=== PATIENT | female | born 1955 | race Caucasian/White ===

== ENCOUNTER 2023-09-09 12:10 | Observation (INO) ==
[2023-09-09] MEDS ORDERED: PROVENTIL NEB TX 0.083% 2.5MG/ 3ML NEB PRN (14:00)
[2023-09-09 14:27] LABS: BASOPHILS # (AUTO) 0.1 X10^3/uL (0.0-0.1); BASOPHILS % (AUTO) 0.6 % (0.2-1.0); EOSINOPHILS # (AUTO) 0.1 x10^3/uL (0.0-0.2); EOSINOPHILS % (AUTO) 0.8 % (0.9-2.9); HEMATOCRIT 38.1 % (36.0-47.0); HEMOGLOBIN 12.7 g/dL (12.0-16.0); LYMPHOCYTES # (AUTO) 2.7 X10^3/uL (1.3-2.9); LYMPHOCYTES % (AUTO) 30.9 % (21.0-51.0); MEAN CORPUSCULAR HEMOGLOBIN 28.7 pg (27.0-34.0); MEAN CORPUSCULAR HGB CONC 33.4 g/dL (33.0-35.0); MEAN CORPUSCULAR VOLUME 85.8 fL (80.0-100.0); MEAN PLATELET VOLUME 7.9 fL (7.4-11.0); MONOCYTES # (AUTO) 0.7 x10^3/uL (0.3-0.8); NEUTROPHILS # (AUTO) 5.3 x10^3/uL (2.2-4.8); NEUTROPHILS % (AUTO) 59.7 % (42.0-75.0); PLATELET COUNT 221 X10^3/uL (150.0-450.0); RED BLOOD COUNT 4.44 X10^6/uL (3.5-5.4); RED CELL DISTRIBUTION WIDTH 18.2 % (11.6-16.5); WHITE BLOOD COUNT 8.8 X10^3/uL (3.6-10.0)
[2023-09-09] MEDS: ZOFRAN INJ 4 MG VIAL IVP PRN (14:30)
[2023-09-09 14:38] LABS: ALANINE AMINOTRANSFERASE 24 Units/L (12-78); ALBUMIN 2.7 g/dL (3.4-5.0); ALKALINE PHOSPHATASE 61 Units/L (46-116); AMYLASE 50 Units/L (25-115); ASPARTATE AMINO TRANSFERASE 23 Units/L (15-37); BLOOD UREA NITROGEN 7 mg/dL (7-18); CALCIUM 8.4 mg/dL (8.5-10.1); CARBON DIOXIDE 29.4 mmol/L (21-32); CHLORIDE 98 mmol/L (98-107); COR CA(FOR HYPOALB) 9.4 mg/dL (8.5-10.1); GLUCOSE 91 mg/dL (65-99); LIPASE 21 Units/L (16-77); POTASSIUM 3.4 mmol/L (3.5-5.1); SODIUM 134 mmol/L (136-145); TOTAL PROTEIN 6.7 g/dL (6.4-8.2); eGFR NON BLACK RACES > 60 (>60)
[2023-09-09 14:51] VITALS: BMI 27.1
[2023-09-09] MEDS: NS 1,000 ML IV 1,000 ML IV SCH (15:07)
[2023-09-09] MEDS: PEPCID 20 MG VIAL 20 MG in NS 50 ML IV 50 ML IV SCH (15:07)
[2023-09-09] MEDS: PROTONIX INJ 40 MG VIAL IVP SCH (15:08)
[2023-09-09] MEDS: CONSULT PHARMACY - POTASSIUM & MAGNESIUM XX SCH (15:19)
[2023-09-09] MEDS: NS + KCL 20 MEQ/L 1,000 ML IV SCH (15:57)
[2023-09-09] MEDS: OMNIPAQUE 350 mg/mL 100 mL BTL 100 ML ONE (16:58)
--- NOTE | 2023-09-09 18:01 | CT ---
EXAM: CT ABDOMEN AND PELVIS WITH CONTRAST HISTORY: abdomen pain, nauseam vomiting; COMPARISON: None. TECHNIQUE: Axial CT images were obtained through the abdomen and pelvis after the intravenous administration of contrast. Coronal reformatted images were included. Informed written consent was obtained prior to contrast administration. All CT scans at this facility use dose modulation, iterative reconstruction, and/or weight based dosi ng when appropriate to reduce radiation dose to as low as reasonably achievable. FINDINGS: LOWER THORAX: Within normal limits. ABDOMEN: LIVER: Small hemangioma posteriorly in the right hepatic lobe GALLBLADDER: Within normal limits. SPLEEN: Within normal limits. PANCREAS: Within normal limits. KIDNEYS: Within normal limits. ADRENAL GLANDS: Within normal limits. GI TRACT: No bowel obstruction. Mild wall thickening of the rectum and sigmoid colon. LYMPH NODES: No abnormally enlarged nodes. VESSELS: Mild diffuse athero sclerotic disease PERITONEUM / RETROPERITONEUM: No free gas. PELVIS: BLADDER: Within normal limits. GENITALS: Within normal limits. BONES: Lumbar fusion hardware IMPRESSION: No evidence of bowel obstruction. Mild wall thickening of the distal sigmoid colon and rectum may pacheco ggest an element of colitis/proctitis. THIS IS AN ELECTRONICALLY VERIFIED FINAL REPORT 09/09/2023 5:58 PM - Electronically signed by Asihsh Street MD
[2023-09-09 20:07] LABS: BILIRUBIN,URINE NEGATIVE (NEGATIVE); BLOOD/HEMOGLOBIN,URINE 1+ (NEGATIVE); GLUCOSE, URINE NEGATIVE (NEGATIVE); KETONES,URINE NEGATIVE (NEGATIVE); LEUKOCYTE ESTERASE ,URINE NEGATIVE (NEGATIVE); NITRITES,URINE NEGATIVE (NEGATIVE); PROTEIN,URINE NEGATIVE (NEGATIVE); UROBILINOGEN,URINE NORMAL (NORMAL)
[2023-09-09 20:12] LABS: APPEARANCE,URINE CLEAR (CLEAR); COLOR,URINE YELLOW (YELLOW)
[2023-09-09 20:17] LABS: BACTERIA,URINE TRACE /HPF (NEGATIVE); RBC,URINE 0-2 /HPF (0-3); SQUAMOUS EPITHELIAL CELL,UR FEW /HPF (NEGATIVE)
[2023-09-09] MEDS ORDERED: HYCODAN SYRUP PO PRN (21:54)
[2023-09-09] MEDS ORDERED: PULMICORT NEB TX 0.5 MG NEB PRN (22:22)
[2023-09-09] MEDS: CIPRO IV 400 MG PREMIX* 400 MG/200 ML IV.SOLN. IV SCH (22:23)
[2023-09-09] MEDS: PULMICORT NEB TX 0.5 MG NEB SCH (22:25)
[2023-09-09] MEDS: NORCO 7.5/325 MG TAB PO PRN (22:32)
[2023-09-10 06:17] LABS: BASOPHILS % (AUTO) 0.6 % (0.2-1.0); EOSINOPHILS # (AUTO) 0.1 x10^3/uL (0.0-0.2); EOSINOPHILS % (AUTO) 1.3 % (0.9-2.9); HEMATOCRIT 33.8 % (36.0-47.0); HEMOGLOBIN 11.3 g/dL (12.0-16.0); LYMPHOCYTES % (AUTO) 44.5 % (21.0-51.0); MEAN CORPUSCULAR HEMOGLOBIN 28.8 pg (27.0-34.0); MEAN CORPUSCULAR HGB CONC 33.4 g/dL (33.0-35.0); MEAN CORPUSCULAR VOLUME 86.1 fL (80.0-100.0); MEAN PLATELET VOLUME 8.1 fL (7.4-11.0); MONOCYTES # (AUTO) 0.8 x10^3/uL (0.3-0.8); MONOCYTES % (AUTO) 11.7 % (0.0-13.0); NEUTROPHILS # (AUTO) 2.8 x10^3/uL (2.2-4.8); NEUTROPHILS % (AUTO) 41.9 % (42.0-75.0); PLATELET COUNT 211 X10^3/uL (150.0-450.0); RED BLOOD COUNT 3.93 X10^6/uL (3.5-5.4); RED CELL DISTRIBUTION WIDTH 18.3 % (11.6-16.5); WHITE BLOOD COUNT 6.7 X10^3/uL (3.6-10.0)
[2023-09-10 06:28] LABS: ALANINE AMINOTRANSFERASE 23 Units/L (12-78); ALBUMIN 2.4 g/dL (3.4-5.0); ALKALINE PHOSPHATASE 52 Units/L (46-116); ASPARTATE AMINO TRANSFERASE 14 Units/L (15-37); BLOOD UREA NITROGEN 6 mg/dL (7-18); CARBON DIOXIDE 34.4 mmol/L (21-32); CHLORIDE 102 mmol/L (98-107); COR CA(FOR HYPOALB) 9.3 mg/dL (8.5-10.1); CREATININE 0.88 mg/dL (0.55-1.02); GLUCOSE 86 mg/dL (65-99); MAGNESIUM 1.3 mg/dL (2.0-2.9); SODIUM 138 mmol/L (136-145); TOTAL PROTEIN 5.8 g/dL (6.4-8.2); eGFR NON BLACK RACES > 60 (>60)
[2023-09-10] MEDS ORDERED: CONSULT PHARMACY - POTASSIUM & MAGNESIUM XX SCH (07:00)
[2023-09-10] MEDS ORDERED: TUSSIONEX PENNKINETIC SUSP PO PRN (07:45)
[2023-09-10] MEDS ORDERED: PATIENT'S HOME MEDICATION (Dexlansoprazole 60 mg capsule,biphase delayed releas) PO SCH (09:00)
[2023-09-10] MEDS ORDERED: LAMOTRIGINE 200 MG PO SCH (09:00)
[2023-09-10] MEDS: PREMARIN PO SCH (09:21)
[2023-09-10] MEDS: CARDIZEM CD 120 MG 24-HR PO SCH (09:22)
[2023-09-10] MEDS: LAMICTAL TAB 100 MG PO SCH (09:22)
[2023-09-10] MEDS: SINGULAIR TAB 10 MG PO SCH (09:27)
[2023-09-10] MEDS: SYNTHROID 50 mcg TAB PO SCH (09:27)
[2023-09-10] MEDS: MAG-OX TAB PO SCH (09:31)
[2023-09-10] MEDS: PATIENT'S HOME MEDICATION PO SCH (12:14)
--- NOTE | 2023-09-10 13:55 | DR.UPDATE ---
H&P Update Prescription drug monitoring program results: PDMP reviewed and no concerns identified H&P Reviewed: Yes Any changes to H&P?: Yes Changes noted:: WAS A DIRECT ADMISSION TO THE OFFICE OBSERVATION STATUS FOR TREATMENT OF DEHYDRATION, NAUSEA AND VOMITING, ABDOMINAL PAIN, AND BLOOD IN STOOL. SHE REPORTS THAT HER SYMPTOMS STARTED ABOUT A WEEK AGO AND HAVE PROGRESSIVELY GOTTEN WORSE. ON ADMISSION, HER VITALS WERE: 97.6-78-20-95%-138/68. LABS WERE OBTAINED. WBC 8.8, RBC 4.4, HGB 12.7, HCT 38.1, PLT COUNT 221, SODIUM 134, POTASSIUM 3.4, CHLORIDE 98, BUN 7, CREATININE 0.90, GLUCOSE 91, CALCIUM 8.4, TOTAL BILI 0.10, AST 23, ALT 24, ALK PHOS 61, TOTAL PROTEIN 6.7, ALBUMIN 2.7. STOOL WAS POSITIVE FOR OCCULT BLOOD. AN ABDOMEN/PELVIS CT WITH CONTRAST WAS OBTAINED AND REVEALED: No evidence of bowel obstruction. Mild wall thickening of the distal sigmoid colon and rectum may suggest an element of colitis/proctitis. SHE WAS STARTED ON NORMAL SALINE WITH POTASSIUM AT 80 ML/HR, CIPRO 400MG IV Q12H, PEPCID 20MG IV Q12H, PROTONIX 40MG IV BID, ZOFRAN 4MG IV Q4H PRN, NORCO 7.5/325MG PO BID PRN, PROVENTIL NEBS TID PRN, PULMICORT NEBS BID PRN, TUSSIONEX 5ML Q12H PRN, PREMARIN 1.25MG DAILY, LAMICTAL 200MG BID, LEVOTHYROXINE 50MCG DAILY, MONTELUKAST 10MG DAILY, AND TRAZODONE 150MG HS PRN. OTHERWISE, WE PLAN TO FOLLOW-UP WITH AM LABS AND CONTINUE TO MONITOR. TIME SPENT ON CLINICAL ASSESSMENT, REVIEWING LABS AND IMAGING, DECISION MAKING, AND DOCUMENTATION GREATER THAN 75 MINUTES. Patient was examined?: Yes Vital Signs: Temp Pulse Pulse Resp BP BP Pulse Ox 09/10/23 12:00 98.4 F 60 20 145/65 96 09/10/23 08:00 97.6 F 58 L 20 140/61 94 L 09/10/23 06:41 20 09/10/23 07:00 09/09/23 23:32 20 09/10/23 05:41 20 09/10/23 04:00 97.8 F 52 L 20 125/63 98 09/10/23 00:00 97.9 F 64 20 131/60 97 09/09/23 22:26 09/09/23 22:26 66 96 09/09/23 19:00 09/09/23 22:32 20 09/09/23 20:00 97.6 F 66 20 139/74 96 09/09/23 15:56 97.9 F 60 20 120/59 95 09/09/23 14:24 09/09/23 13:59 09/09/23 13:04 97.6 F 78 20 138/68 95 O2 Del Method O2 Flow Rate FiO2 09/10/23 12:00 Room Air 09/10/23 08:00 Room Air 09/10/23 06:41 09/10/23 07:00 Room Air 09/09/23 23:32 09/10/23 05:41 09/10/23 04:00 Room Air 09/10/23 00:00 Room Air 09/09/23 22:26 Room Air 09/09/23 22:26 09/09/23 19:00 Room Air 09/09/23 22:32 09/09/23 20:00 Room Air 09/09/23 15:56 Room Air 09/09/23 14:24 Room Air 09/09/23 13:59 Room Air 2.5 30 09/09/23 13:04 Room Air
[2023-09-10] MEDS: NS + KCL 20 MEQ/L 1,000 ML with MAGNESIUM SULFATE 50% INJ VIAL 1 G IV SCH (15:48)
[2023-09-10] MEDS: DESYREL PO PRN (20:26)
[2023-09-11 06:05] LABS: BASOPHILS % (AUTO) 0.4 % (0.2-1.0); EOSINOPHILS # (AUTO) 0.1 x10^3/uL (0.0-0.2); EOSINOPHILS % (AUTO) 1.6 % (0.9-2.9); HEMATOCRIT 33.5 % (36.0-47.0); LYMPHOCYTES # (AUTO) 2.1 X10^3/uL (1.3-2.9); LYMPHOCYTES % (AUTO) 32.7 % (21.0-51.0); MEAN CORPUSCULAR HEMOGLOBIN 28.6 pg (27.0-34.0); MEAN CORPUSCULAR HGB CONC 32.8 g/dL (33.0-35.0); MEAN CORPUSCULAR VOLUME 87.2 fL (80.0-100.0); MEAN PLATELET VOLUME 8.2 fL (7.4-11.0); MONOCYTES # (AUTO) 0.7 x10^3/uL (0.3-0.8); MONOCYTES % (AUTO) 11.2 % (0.0-13.0); NEUTROPHILS # (AUTO) 3.4 x10^3/uL (2.2-4.8); NEUTROPHILS % (AUTO) 54.1 % (42.0-75.0); PLATELET COUNT 223 X10^3/uL (150.0-450.0); RED BLOOD COUNT 3.84 X10^6/uL (3.5-5.4); RED CELL DISTRIBUTION WIDTH 18.2 % (11.6-16.5); WHITE BLOOD COUNT 6.4 X10^3/uL (3.6-10.0)
[2023-09-11 06:24] LABS: ALANINE AMINOTRANSFERASE 23 Units/L (12-78); ALBUMIN 2.3 g/dL (3.4-5.0); ALKALINE PHOSPHATASE 53 Units/L (46-116); ASPARTATE AMINO TRANSFERASE 17 Units/L (15-37); BLOOD UREA NITROGEN 6 mg/dL (7-18); CALCIUM 7.8 mg/dL (8.5-10.1); CARBON DIOXIDE 33.7 mmol/L (21-32); CHLORIDE 104 mmol/L (98-107); COR CA(FOR HYPOALB) 9.2 mg/dL (8.5-10.1); CREATININE 0.85 mg/dL (0.55-1.02); GLUCOSE 75 mg/dL (65-99); MAGNESIUM 1.9 mg/dL (2.0-2.9); SODIUM 139 mmol/L (136-145); TOTAL PROTEIN 5.7 g/dL (6.4-8.2); eGFR NON BLACK RACES > 60 (>60)
[2023-09-11 10:57] VITALS: BP 156/69; PULSE 59; RESP 18; TEMP 97.6; O2SAT 99
== END 2023-09-11 11:10 | disposition home or self-care (01) ==
LOC: MED/SURG
PROVIDERS: ADMIT Internal Medicine; ATTEND Internal Medicine
DX: K92.1 Melena; E87.1 Hypo-osmolality and hyponatremia; R13.11 Dysphagia, oral phase; E86.0 Dehydration; R10.84 Generalized abdominal pain; E83.42 Hypomagnesemia; R11.2 Nausea with vomiting, unspecified; E87.6 Hypokalemia